=== PATIENT | male | born 1950 | race Caucasian/White ===

== ENCOUNTER 2021-01-19 10:59 | Outpatient (CLI) | payer MEDICARE, SELFPAY ==
--- NOTE | ~2021-01-19 | CT_ITS ---
EXAMINATION: CT lung screening DATE: 01/19/2021 11:17 INDICATION: Personal history of tobacco dependence. TECHNIQUE: Computed tomography (CT) of the chest was performed without intravenous contrast. The dose -length product was 161.37 mGy-cm. Automated exposure control and iterative reconstruction technique were employed. COMPARISON: CT dated 09/15/2017 FINDINGS: No significant thoracic lymphadenopathy. Heart size is normal. No pleural or pericardial ef fusion. There is cirrhosis of the liver. Small hiatal hernia. There is atherosclerosis of the aorta a nd coronary arteries. There is apical pleural thickening/scarring. There is emphysema. Calcified gran uloma in the lingula. There are a few small scattered pulmonary nodules measuring 3 mm or less. No en dobronchial lesions. No acute osseous abnormality. There is gynecomastia. IMPRESSION: 1. Lung-RADS category 2: Benign appearance or behavior. Continue annual screening with noncontrast lo w-dose chest CT in 12 months. Reviewed, dictated and finalized at [facility]. IMPRESSION: 1. Lung-RADS category 2: Benign appearance or behavior. Continue annual screeni ng with noncontrast low-dose chest CT in 12 months.
== END 2021-01-19 11:00 | disposition home or self-care (01) ==
PROVIDERS: PCP Internal Medicine; Visit Provider Internal Medicine
DX: Z87.891 Personal history of nicotine dependence (principal)
CPT/HCPCS: 71271

== ENCOUNTER → 2021-10-09 11:09 | Outpatient (CLI) | payer MEDICARE, OTHER, SELFPAY ==
--- NOTE | ~2021-10-09 | CT_ITS ---
EXAMINATION: CT abdomen pelvis wo con DATE: 10/09/2021 11:23 INDICATION: Abdominal pain TECHNIQUE: Computed tomography (CT) of the abdomen and pelvis was performed without intravenous contr ast. Automated exposure control and iterative reconstruction technique were employed. Exam dose: 102 6.07 mGy-cm total exam DLP. COMPARISON: June 11, 2009 CT abdomen pelvis FINDINGS: There is mild peripheral septal soft tissue thickening in the right lower lobe. No infiltra te or consolidation at the lung bases. Normal heart size. No pericardial or pleural effusion. There is coronary artery calcification. Mild surface nodularity of the liver is suggested; recommend clinical correlation for cirrhosis. Norm al splenic size. The gallbladder is distended. No gallbladder wall thickening or pericholecystic fat stranding or flui d. No bile duct or pancreatic duct dilatation. No hepatic, splenic, pancreatic, adrenal or renal spac e-occupying mass lesion is detected. Approximately 2.5 mm nonobstructing left renal calculus. No urinary tract calculus or hydroureteronep hrosis is noted otherwise. The urinary bladder is relatively evacuated, unremarkable. There is prosta te enlargement and calcification. Normal appendix. No bowel obstruction or intraperitoneal free air. There is evidence, calcification of the abdominal aorta, celiac, superior mesenteric, renal and iliac arteries. 2.4 cm left common iliac artery aneurysm. No intraperitoneal or retroperitoneal or pelvic mass lesion or adenopathy or ascites. The left testicle appears to be situated in the inguinal canal. Osteopenia. Right total hip arthroplasty. Severe degenerative disc disease and minimal retrolisthesis at L2-3 and moderately severe degenerativ e disc disease at L5-S1. IMPRESSION: Suggestion of mild surface nodularity of liver; recommend clinical correlation for cirrh osis Small nonobstructing left renal calculus Normal appendix 2.4 cm left common iliac artery aneurysm Reviewed, dictated and finalized at [facility]. Reviewed, dictated and finalized at [facility]. IMPRESSION: Suggestion of mild surface nodularity of liver; recommend clinical correlation for cirrhosis Small nonobstructing left renal calculus Normal appendix 2.4 cm left common iliac artery aneurysm
== END ==
PROVIDERS: PCP Family Medicine; Visit Provider Family Medicine
DX: R10.9 Unspecified abdominal pain (principal); N20.0 Calculus of kidney
CPT/HCPCS: 74176

== ENCOUNTER 2022-05-06 11:23 | Outpatient (CLI) | payer MEDICARE, SELFPAY ==
[2022-05-06 20:38] LABS: Alanine Aminotransferase 28 U/L (6-50); Albumin Level 4.8 g/dL (3.5-5.1); Alkaline Phosphatase 57 U/L (38-126); Anion Gap 6 mmol/L (8-16); Aspartate Amino Transferase 38 U/L (17-59); Bilirubin,Total 0.8 mg/dL (0.2-1.3); Blood Urea Nitrogen 14 mg/dL (9-20); Calcium 9.4 mg/dL (8.4-10.2); Carbon Dioxide 30 mmol/L (22-30); Chloride 100 mmol/L (98-107); Cholesterol 123 mg/dL (0-200); Estimated Glomerular Filt Rate > 60; Glucose 134 mg/dL (65-110); HDL Direct 53 mg/dL; Potassium 4.7 mmol/L (3.4-5.0); Sodium 136 mmol/L (137-145); Triglycerides 117 mg/dL (<150)
[2022-05-06 20:48] LABS: Hemoglobin A1C 6.5 % (<5.7)
[2022-05-06 20:49] LABS: LDL Cholesterol Direct 43 mg/dL
[2022-05-06 23:08] LABS: Thyroid Stimulating Hormone Reflex 0.235 uIU/mL (0.465-4.68)
[2022-05-07 09:00] LABS: Free T4 Free Thyroxine Reflex 1.27 ng/dL (0.78-2.19)
[2022-05-07 11:16] LABS: Total Triiodothyronine (T3) 1.16 NG/ML (0.97-1.69)
== END 2022-05-06 11:24 | disposition home or self-care (01) ==
LOC: ANHGOSHLAB 11:25
PROVIDERS: PCP Family Medicine; Visit Provider Family Medicine
DX: E11.9 Type 2 diabetes mellitus without complications (principal); E78.5 Hyperlipidemia, unspecified; I10 Essential (primary) hypertension; E03.9 Hypothyroidism, unspecified
CPT/HCPCS: 36415; 80053; 80061; 83036; 84439; 84443; 84480

== ENCOUNTER → 2022-05-14 13:35 | Outpatient (CLI) | payer MEDICARE, SELFPAY ==
--- NOTE | ~2022-05-14 | CT_ITS ---
EXAMINATION: CT lung screening DATE: 05/14/2022 13:50 INDICATION: 50 pk year smoking history TECHNIQUE: Computed tomography (CT) of the chest was performed without intravenous contrast. Addition al 3D reconstructions utilizing coronal maximum intensity projection (MIP) were performed. Automated exposure control and iterative reconstruction technique were employed. The dose-length product was 17 7.00 mGy-cm. COMPARISON: 01/19/2021 FINDINGS: Mild upper lung predominant emphysema. Calcified nodule along with calcified left hilar and mediastin al lymph nodes consistent with old granulomatous disease. There are a couple unchanged not definitive ly calcified <3 mm left upper lobe nodules. No new or enlarging pulmonary nodules. Mild bibasilar ate lectasis. No pneumonia, pulmonary edema or pleural effusion. Heart size is normal. Atherosclerotic co ronary artery calcific location. No pericardial effusion. No pathologically enlarged thoracic lymphad enopathy. Nodular liver surface suggestive of cirrhosis. Mild gynecomastia. Mild upper thoracic levoc urvature. Mild spondylosis. IMPRESSION: 1. Lung-RADS category 2: Benign appearance or behavior. Continue annual screening with noncontrast lo w-dose chest CT in 12 months. Reviewed, dictated and finalized at [facility]. [employer] IMPRESSION: 1. Lung-RADS category 2: Benign appearance or behavior. Continue annual screeni ng with noncontrast low-dose chest CT in 12 months.
== END ==
PROVIDERS: PCP Family Medicine; Visit Provider Family Medicine
DX: Z12.2 Encounter for screening for malignant neoplasm of respiratory organs (principal); Z87.891 Personal history of nicotine dependence
CPT/HCPCS: 71271

== ENCOUNTER 2022-07-09 10:28 | Outpatient (CLI) | payer MEDICARE, SELFPAY ==
[2022-07-09 19:49] LABS: Thyroid Stimulating Hormone Reflex 0.843 uIU/mL (0.465-4.68)
== END 2022-07-09 10:29 | disposition home or self-care (01) ==
LOC: ANHGOSHLAB 10:29
PROVIDERS: PCP Family Medicine; Visit Provider Family Medicine
DX: E89.0 Postprocedural hypothyroidism (principal); Z13.29 Encounter for screening for other suspected endocrine disorder
CPT/HCPCS: 36415; 84443